=== PATIENT | female | born 1960 | race Caucasian/White ===

== ENCOUNTER 2016-04-03 16:19 | Observation (INO) ==
[2016-04-03] MEDS ORDERED: Aspirin 81 MG TAB.CHEW PO ONE (16:46)
--- NOTE | 2016-04-03 16:49 | Emergency Department Note ---
Disposition Clinical Impression: Chest pain Qualifiers: Chest pain type: unspecified Qualified Code(s): R07.9 - Chest pain, unspecified Disposition: Admitted As Inpatient Condition: Good Referrals: Russell Rodriges MD [Primary Care Provider] - Forms: ED Satisfaction Letter Time of Disposition: 18:10 Chest Pain HPI - General Chief Complaint: ED Chest Pain Stated Complaint: chest pain Time Seen by Provider: 04/03/16 16:41 Source: patient Mode of arrival: ambulatory Limitations: no limitations Vital Signs Reviewed: Yes Nursing Notes Reviewed: Yes - History of Present Illness HPI Narrative: 55-year-old female comes in complaining of chest pain began over the weekend. Patient states it's off and on in its exertional nature. She states her bathroom is upstairs and when she goes up steps to use the bathroom she develops chest pain that resolves with rest. Patient had a stress test and cardiac catheter 10 years ago that was normal. Does have risk factors she is a smoker she does have a family history and his borderline glucose. She also has an elevated cholesterol. 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 Onset: during exertion Pain Location: substernal, left chest Severity scale (1-10): 7 Improves with: rest Worsens with: exertion Associated symptoms: Denies: nausea, vomiting, diaphoresis - Related Data Home Medications Medication Instructions Recorded Confirmed Aspirin 81 mg PO DAILY 10/13/14 01/24/16 Cholecalciferol (Vitamin D3) 10,000 unit PO WE 10/13/14 01/24/16 [Vitamin D3] ClonazePAM [Klonopin] 1 mg PO BID PRN 10/13/14 01/24/16 Atorvastatin Calcium [Lipitor] 20 mg PO DAILY 01/24/16 01/24/16 Cetirizine HCl [All Day Allergy] 10 mg PO DAILY 01/24/16 01/24/16 Escitalopram [Lexapro] 20 mg PO DAILY 01/24/16 01/24/16 Fluticasone Propionate Nasal 2 spray NS DAILY 01/24/16 01/24/16 [Flonase] Gabapentin [Neurontin] 800 mg PO TID 01/24/16 01/24/16 HYDROcodone/Acet 7.5/325 mg [[place] 1 tab PO QID PRN 01/24/16 01/24/16 7.5-325 mg] Omeprazole [PriLOSEC] 40 mg PO DAILY 01/24/16 01/24/16 Potassium Chloride [Klor-Con 10] 10 meq PO DAILY 01/24/16 01/24/16 Promethazine [Phenergan] 25 mg PO Q6HR PRN 01/24/16 01/24/16 TraZODone 50 - 100 mg PO HS 01/24/16 01/24/16 Previous Rx's Medication Instructions Recorded HYDROcodone/Acet 5/325 mg [[place] 1 tab PO Q6H PRN #10 tab 03/23/16 5-325 mg] Allergies Allergy/AdvReac Type Severity Reaction Status Date / Time metoclopramide [From Reglan] Allergy Mild Rash Verified 04/03/16 16:29 nalbuphine [From Nubain] Allergy Mild Rash Verified 04/03/16 16:29 acetaminophen AdvReac Severe Chest Pain Verified 04/03/16 16:29 [From Tylenol-Codeine #3] codeine AdvReac Severe Chest Pain Verified 04/03/16 16:29 [From Tylenol-Codeine #3] tramadol [From Ultram] AdvReac Mild Nausea Verified 04/03/16 16:29 Constitutional: Denies: fever, chills, weakness, weight change Eyes: Denies: eye pain, eye discharge, vision change ENT ED: Denies: ear pain, throat pain, dental pain, hearing loss, epistaxis, congestion, dysphagia Cardiovascular: Reports: chest pain. Denies: palpitations, dyspnea on exertion , edema, syncope Respiratory: Denies: cough, dyspnea, wheezes, hemoptysis, stridor Gastrointestinal: Denies: abdominal pain, nausea, vomiting, diarrhea, constipation, hematemesis, melena, hematochezia Genitourinary: Denies: dysuria, frequency, hematuria, discharge Musculoskeletal: Denies: back pain, neck pain, arthralgia, myalgia Integumentary: Denies: rash, abrasion, lesions Neurological: Denies: headache, weakness, numbness, paresthesias, confusion, abnormal gait, vertigo Psychiatric: Denies: anxiety, depression, suicidal thoughts, homicidal thoughts , auditory hallucinations, visual hallucinations Endocrine: Denies: fatigue Hematological/Lymphatic: Denies: easy bleeding, easy bruising Allergic/Immunologic: Denies: facial swelling, urticaria Chest Pain PMH - Past Medical History Medical history: Reports: fibromyalgia, GERD, hyperlipidemia, osteoporosis, other, kidney stones, DVT Surgical history: Reports: orthopedic, other, hysterectomy Psychiatric history: Reports: anxiety, depression 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: bilateral tubal ligation - Social History Smoking Status: Current every day smoker Alcohol use: Reports: none Drug use: Reports: none, other Physical Exam - General Limitations: no limitations General appearance: alert - Head Head exam: atraumatic, normocephalic, normal inspection - Eye Eye exam: Present: normal appearance, PERRL, EOMI - ENT ENT exam: normal exam, normal oropharynx, mucous membranes moist - Neck Neck exam: Present: normal inspection, full ROM, trachea midline - Chest Chest inspection: Present: normal inspection, symmetric chest wall rise - Respiratory Respiratory exam: Present: normal lung sounds bilaterally - Cardiovascular Cardiovascular exam: Present: regular rate, normal rhythm, normal heart sounds - Abdominal Exam Abdominal exam: Present: soft, Non-Tender. Absent: tenderness, distention, guarding, rebound, rigidity - Extremities Exam Extremities exam: Present: normal inspection, full ROM. Absent: tenderness, pedal edema - Expanded Lower Extremity Exam Neurovascular/Tendon exam: Absent: motor deficit, sensory deficit, tendon deficit Gait: observed and normal - Back Exam Back exam: Present: normal inspection, full ROM. Absent: tenderness - Neurological Exam Neurological exam: Present: alert, oriented X3 - Psychiatric Psychiatric exam: Present: normal affect, normal mood - Skin Skin exam: Present: warm, dry, intact, normal color Course - Reevaluation(s) Reevaluation #1: 55-year-old with risk factors who comes in complaining of exertional chest pain. Workup in the emergency department is negative however with risk factors and clinical history rule out admission appears warranted. Time: 18:09 - Consultations Consultation #1: Discussed with Dr. Pro marley. Time: 18:09 Vital Signs Temperature 98.0 F 04/03/16 16:26 Pulse Rate 90 04/03/16 16:26 Respiratory Rate 18 04/03/16 16:26 Blood Pressure 130/82 04/03/16 16:26 O2 Sat by Pulse Oximetry 96 04/03/16 16:26 Temperature 98.0 F 04/03/16 16:26 Pulse Rate 90 04/03/16 16:26 Respiratory Rate 18 04/03/16 16:26 Blood Pressure 130/82 04/03/16 16:26 O2 Sat by Pulse Oximetry 96 04/03/16 16:26 Oxygen Delivery Oxygen Delivery Room Air Chest Pain - Lab Data Lab results reviewed: Yes I reviewed the patient's lab results. Result diagrams: 04/03/16 17:08 04/03/16 17:08 Lab Results 04/03/16 04/03/16 04/03/16 Range/Units 17:08 17:08 17:08 WBC 11.4 H (4.3-11.1) K/mcL RBC 4.27 (3.82-4.97) M/mcL Hgb 12.8 (11.5-15.4) g/dL Hct 38.1 (35.3-44.9) % MCV 89.2 (83.0-100.0) fL MCH 30.0 (28.0-33.3) pg MCHC 33.6 (31.6-35.5) g/dL RDW 13.0 (11.5-14.5) % Plt Count 283 (140-400) K/mcL MPV 9.5 (9.4-12.4) fL Immature Gran % 0.2 (0-4) % Seg Neutrophils % 58.6 % Lymphocytes % 34.2 % Monocytes % 5.8 % Eosinophils % 0.9 % Basophils % 0.3 % Neutrophils # 6.7 (1.6-8.9) K/mcL Lymphocytes # 3.9 (0.6-4.6) K/mcL Monocytes # 0.7 (0.0-1.3) K/mcL Eosinophils # 0.1 (0.0-0.6) K/mcL Basophils # 0.0 (0.0-0.2) K/mcL PT 11.5 (9.4-12.1) Seconds INR 1.1 APTT 30.6 (26.0-36.0) Seconds Sodium 138 (136-145) mEq/L Potassium 3.2 L (3.5-4.5) mEq/L Chloride 104 (98-109) mEq/L Carbon Dioxide 24 (19-29) mEq/L BUN 9 (7-20) mg/dL Creatinine 0.81 (0.57-1.11) mg/dL Est GFR ( Amer) > 60 (> 60) Est GFR (Non-Af Amer) > 60 (> 60) BUN/Creatinine Ratio 11 (6-26) Glucose 97 (70-99) mg/dL Calculated Osmolality 285 (280-300) Calcium 9.5 (8.6-10.8) mg/dL Troponin I (0-0.03) ng/mL 04/03/16 Range/Units 17:08 WBC (4.3-11.1) K/mcL RBC (3.82-4.97) M/mcL Hgb (11.5-15.4) g/dL Hct (35.3-44.9) % MCV (83.0-100.0) fL MCH (28.0-33.3) pg MCHC (31.6-35.5) g/dL RDW (11.5-14.5) % Plt Count (140-400) K/mcL MPV (9.4-12.4) fL Immature Gran % (0-4) % Seg Neutrophils % % Lymphocytes % % Monocytes % % Eosinophils % % Basophils % % Neutrophils # (1.6-8.9) K/mcL Lymphocytes # (0.6-4.6) K/mcL Monocytes # (0.0-1.3) K/mcL Eosinophils # (0.0-0.6) K/mcL Basophils # (0.0-0.2) K/mcL PT (9.4-12.1) Seconds INR APTT (26.0-36.0) Seconds Sodium (136-145) mEq/L Potassium (3.5-4.5) mEq/L Chloride (98-109) mEq/L Carbon Dioxide (19-29) mEq/L BUN (7-20) mg/dL Creatinine (0.57-1.11) mg/dL Est GFR ( Amer) (> 60) Est GFR (Non-Af Amer) (> 60) BUN/Creatinine Ratio (6-26) Glucose (70-99) mg/dL Calculated Osmolality (280-300) Calcium (8.6-10.8) mg/dL Troponin I 0.00 (0-0.03) ng/mL - Radiology Data Radiology results reviewed: Yes I reviewed the patient's radiology results. Chest X-Ray 02/14/17 16:46 IMPRESSION: No acute cardiopulmonary process. D/ 04/03/2016 17:39:22 Jam Villaseñor MD / [facility] Interpreting Provider: Jam Villaseñor MD - EKG Data EKG attestation: Yes I reviewed and interpreted this EKG. EKG shows normal: sinus rhythm Rate: normal Rhythm: NSR Interpretation: no acute changes Heart Score - Score History: Moderately Suspicious EKG: Non Specific repolarisation Disturbance Age: 45-65 Risk Factors: 1-2 risk factors Troponin: Less than normal limit HEART Score Total: 4
[2016-04-03 17:15] LABS: Basophils % 0.3 %; Eosinophils # 0.1 K/mcL (0.0-0.6); Eosinophils % 0.9 %; Hematocrit 38.1 % (35.3-44.9); Hemoglobin 12.8 g/dL (11.5-15.4); Immature Granulocytes % 0.2 % (0-4); Lymphocytes # 3.9 K/mcL (0.6-4.6); Lymphocytes % 34.2 %; Mean Corpuscular HGB Conc 33.6 g/dL (31.6-35.5); Mean Corpuscular Volume 89.2 fL (83.0-100.0); Mean Platelet Volume 9.5 fL (9.4-12.4); Monocytes # 0.7 K/mcL (0.0-1.3); Monocytes % 5.8 %; Neutrophils # 6.7 K/mcL (1.6-8.9); Platelet Count 283 K/mcL (140-400); Red Blood Count 4.27 M/mcL (3.82-4.97); Segmented Neutrophils % 58.6 %
[2016-04-03 17:21] LABS: INR 1.1; Prothrombin Time 11.5 Seconds (9.4-12.1)
[2016-04-03 17:24] LABS: Activated Partial Thrombo Time 30.6 Seconds (26.0-36.0)
[2016-04-03 17:28] LABS: BUN/Creatinine Ratio 11 (6-26); Blood Urea Nitrogen 9 mg/dL (7-20); Calcium 9.5 mg/dL (8.6-10.8); Carbon Dioxide 24 mEq/L (19-29); Chloride 104 mEq/L (98-109); Glucose 97 mg/dL (70-99); Osmolality,Calculated 285 (280-300); Potassium 3.2 mEq/L (3.5-4.5); Sodium 138 mEq/L (136-145); eGFR For African Americans > 60 (> 60); eGFR For Non-African Americans > 60 (> 60)
[2016-04-03] MEDS ORDERED: Ondansetron 4 MG/2 ML VIAL IVP ONE (17:47)
[2016-04-03] MEDS ORDERED: *HR* Morphine 2 MG/ML SYRINGE IVP ONE (17:47)
[2016-04-03] MEDS ORDERED: Fluticasone Propionate Nasal 50 MCG/SPRAY BOTTLE NS PRN (20:05)
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
[2016-04-03] MEDS: Nicotine 14 MG PATCH.TD24 TD SCH (20:25)
[2016-04-03] MEDS: *HR* Morphine 2 MG/ML SYRINGE IVP PRN (21:22)
[2016-04-03] MEDS ORDERED: Ondansetron 4 MG/2 ML VIAL IVP PRN (21:31)
[2016-04-04] MEDS: *HR* Morphine 2 MG/ML SYRINGE IVP PRN (04:30)
[2016-04-04 04:43] LABS: Basophils % 0.4 %; Eosinophils # 0.2 K/mcL (0.0-0.6); Eosinophils % 1.6 %; Hematocrit 38.6 % (35.3-44.9); Hemoglobin 12.8 g/dL (11.5-15.4); Immature Granulocytes % 0.2 % (0-4); Lymphocytes # 4.4 K/mcL (0.6-4.6); Lymphocytes % 46.8 %; Mean Corpuscular HGB Conc 33.2 g/dL (31.6-35.5); Mean Corpuscular Hemoglobin 30.1 pg (28.0-33.3); Mean Corpuscular Volume 90.8 fL (83.0-100.0); Mean Platelet Volume 9.8 fL (9.4-12.4); Monocytes # 0.5 K/mcL (0.0-1.3); Monocytes % 5.7 %; Neutrophils # 4.2 K/mcL (1.6-8.9); Platelet Count 273 K/mcL (140-400); Red Blood Count 4.25 M/mcL (3.82-4.97); Red Cell Distribution Width 13.1 % (11.5-14.5); Segmented Neutrophils % 45.3 %
[2016-04-04] MEDS ORDERED: Regadenoson 0.4 MG/5 ML SYRINGE IVP ONE (06:53)
[2016-04-04] MEDS ORDERED: *HR* Enoxaparin 40 MG/0.4 ML SYRINGE SQ SCH (07:00)
[2016-04-04] MEDS ORDERED: Aspirin 81 MG TAB.CHEW PO SCH (09:00)
[2016-04-04] MEDS ORDERED: clonazePAM 0.5 MG TABLET PO SCH (09:00)
[2016-04-04] MEDS ORDERED: Acetaminophen 325 MG TABLET PO PRN (09:38)
[2016-04-04] MEDS: Nicotine 14 MG PATCH.TD24 TD SCH (09:53)
--- NOTE | 2016-04-04 10:37 | Nuclear Medicine Stress Report ---
Regadenoson Nuclear Stress Name: Kathy Stratton Date of Study: 04/04/2016 Date: 1960 Ht: 63.0 in Medical Record#: [id number] Age: 55 Wt: 157.0 lb Gender: Female Order #: [id number] Location: [facility] Room: [facility] Supervising Provider: Markel Kaur CNP Reading Physician: Paulo Castillo DO, FACArmando, ANA PAULA SINGLETARY Ordering Physician: Jen Mena CNP Primary Care Physician: Russell Rodriges MD Stress Technologist: Lidia Velasquez, LIABILITY CLAIMS MANAGER, CCT, CPFT Cab Supervisor: Broderick Leigh Indications: Chest Pain Impression: Pharmacologic stress ECG is negative for ischemia at level of heart rate achieved. Slight chest heaviness reported, lasting less than one minute. This is a nonspecific finding with Lexiscan. Gated EF > 70%. Small sized, mild intensity, fixed apical lateral defect consistent with artifact. Perfusion imaging was negative for ischemia or infarct. History: History of Smoking Stress Test Summary: Stress Test Type: Pharmacologic Regadenoson 0.4mg/5ml given IV Baseline Information: Initial Heart Rate: 68 Blood Pressure: 110/60 Stress Information: Stress Time: 4 min sec Test Terminated Due to (primary): As per protocol Maximum Blood Pressure: 112/64 Maximum Heart Rate: 112 Percent Maximum Heart Rate Achieved: 67 Double Product: [id number] METS Reached: 1 Symptoms: Shortness of breath Nuclear Summary: SPECT myocardial perfusion imaging using Tc99m Sestamibi given intravenously was performed at rest and following cardiac stress testing. The resting images were obtained following initial dose of 10.9 mCi. Following stress an additional dose of 34.9 mCi was given at peak exercise or 30 seconds post regadenoson infusion. Medication Given: Time Medication Dose Units Route Findings: Stress Note * Resting ECG demonstrated normal sinus rhythm. * No baseline arrhythmias were noted. * Pharmacologic stress ECG is negative for ischemia at level of heart rate achieved. * No arrhythmias were noted during stress. * Slight chest heaviness reported, lasting less than one minute. This is a nonspecific finding with Lexiscan. Hemodynamic responses * Normal hemodynamic responses to pharmacologic stress. Study Quality * Study quality is average. Gated EF > 70% * Gated EF > 70%. Left Ventricle * The left ventricle is not dilated. * LVEDV = 66 mL. NORMALS * Normal wall motion. Apical Perfusion Rest * The apical lateral segment shows a mild reduction in perfusion. Apical Perfusion Stress * The apical lateral segment shows a mild reduction in perfusion. TID * No evidence of transient ischemic dilatation. TID ratio * TID ratio = 1.19. Lung Uptake * There is no evidence of increase lung uptake. Updated by Paulo Castillo DO, FACArmando, GEMINI, ANA PAULA on 04/04/2016 10:31:16 AM electronically signed on 04/04/2016 10:33:30 AM with status of Final
[2016-04-04 11:20] VITALS: BP 106/70
--- NOTE | 2016-04-04 12:47 | Discharge Summary ---
Date of Encounter: 04/04/16 Time of Encounter: 12:15 - Discharge Diagnosis (1) Chest pain Priority: Primary Status: Acute Comments: Chest x-ray negative. Troponins negative. Stress test negative. Acute coronary syndrome ruled out. Patient stating her daughter and her daughter's 6 kids are living with her and states she has an exorbitant amount of stress. Chest pain reproducible with palpation, consistent with musculoskeletal etiology. Follow-up outpatient. Qualifiers: Chest pain type: unspecified Qualified Code(s): R07.9 - Chest pain, unspecified (2) Costochondral chest pain Priority: Primary Status: Suspected (3) Other social stressor Priority: Primary Status: Acute (4) Hyperlipidemia Priority: Secondary Status: Chronic Comments: Elevated triglycerides and total cholesterol. LDL 228. We will initiate a statin and give her information on low-cholesterol diet. Follow-up outpatient. (5) Tobacco abuse Priority: Secondary Status: Chronic Comments: Patient stating she continues to smoke half pack per day. She declined counseling stating her social life is simply too stressful at this point to consider stopping - Discharge Medications Prescriptions: Rosuvastatin Calcium 20 mg PO HS #30 tablet Home Medications: Aspirin 81 mg PO DAILY 10/13/14 [History] Cholecalciferol (Vitamin D3) [Vitamin D3] 10,000 unit PO WE 10/13/14 [History] Escitalopram [Lexapro] 20 mg PO DAILY 01/24/16 [History] Fluticasone Propionate Nasal [Flonase] 2 spray NS DAILY PRN 01/24/16 [History] Gabapentin [Neurontin] 800 mg PO TID 01/24/16 [History] Omeprazole [PriLOSEC] 40 mg PO DAILY 01/24/16 [History] Potassium Chloride [Klor-Con 10] 10 meq PO DAILY 01/24/16 [History] Promethazine [Phenergan] 25 mg PO Q6HR PRN 01/24/16 [History] TraZODone 50 - 100 mg PO HS PRN 01/24/16 [History] ClonazePAM [Klonopin] 0.5 mg PO DAILY 04/03/16 [History] Ibuprofen 800 mg PO TID PRN 04/03/16 [History] Methocarbamol [Robaxin-750] 750 mg PO TID PRN 04/03/16 [History] Vilazodone HCl [Viibryd] 10 mg PO DAILY 04/03/16 [History] Rosuvastatin Calcium 20 mg PO HS #30 tablet 04/04/16 [Rx] Allergies/Adverse Reactions: Allergies metoclopramide [From Reglan] Allergy (Mild, Verified 04/03/16 16:29) Rash nalbuphine [From Nubain] Allergy (Mild, Verified 04/03/16 16:29) Rash acetaminophen [From Tylenol-Codeine #3] Adverse Reaction (Severe, Verified 04/03 16:29) Chest Pain PATIENT STATES CAN TAKE OTC TYLENOL codeine [From Tylenol-Codeine #3] Adverse Reaction (Severe, Verified 04/03/16 16 :29) Chest Pain tramadol [From Ultram] Adverse Reaction (Mild, Verified 04/03/16 16:29) Nausea Procedures/tests Complete & Pending: Procedures Performed prior 72 hours Category Date Time Status NM lindsey perf SPECT multi [NM] Routine Exams 04/03/16 23:33 Taken SP pharm nuclear stress Routine Y 04/04/16 08:30 Completed Date of admission: 04/03/16 18:32 Primary care physician: Penelope Carrillo Discharging clinician: Jen Mena Anticipated date of discharge: 04/04/16 - Patient Status Disposition: Home, Self-Care Condition: Good Functional capacity at discharge: independent ambulation Overall status at discharge: patient is back to baseline - Discharge Instructions Follow Up With: Russell Rodriges MD [Primary Care Provider] - 04/06/16 11:30 am Additional Instructions: Follow-up with primary care provider as scheduled - Diet and Activity Activity: increase activity as tolerated Diet: low fat, low cholesterol, low salt diet Hospital course: Ms. Stratton is a 55 year old female with past medical history of fibromyalgia , GERD, hyperlipidemia, prior DVT, current tobacco abuse. Patient presented to the emergency room for chief complaint intermittent left-sided chest pain 1 week. Patient stating the pain is exertional but also occurs at rest and lasts for minutes to an hour. Patient denies cough, shortness of breath, fever or chills. Patient does endorse increased social stressors at home has her daughter and her 6 grandchildren are living with her. Workup in the emergency department unremarkable. Chest x-ray negative. Patient was admitted to the hospitalist service for further evaluation and management. Troponins were negative. Nuclear stress test negative and revealed an ejection fraction of 70% . Acute coronary syndrome ruled out. On examination, patient's left-sided chest pain is reproducible with palpation and consistent with musculoskeletal etiology. Patient also states that her physician allegedly told her several weeks ago that her cholesterol was very high and that she would end up having a stroke or a heart attack. She states that she was not placed on a cholesterol medication at that time and states that she obsesses and worries over this several times daily. Triglyceride 228, total cholesterol 213, LDL 228. Patient started on statin at this time and she was educated on low cholesterol diets. I strongly suspect muscular etiology compounded with increased social stressors and anxiety likely the culprit of her chest pain. She was discharged home in stable condition with close outpatient follow-up recommended. ITS Impressions Chest X-Ray 04/03/16 16:46 IMPRESSION: No acute cardiopulmonary process. D/ / 04/03/2016 17:39:22 Jam Villaseñor MD / [facility] Interpreting Provider: Jam Villaseñor MD Nuclear stress test impression: Pharmacologic stress ECG is negative for ischemia level of heart rate achieved. Slight chest heaviness reported, lasting less than 1 minute. This is a nonspecific finding with Lexiscan. Gated ejection fraction greater than 70%. Small size, mild intensity, fixed apical lateral defect consistent with artifact. Perfusion imaging was negative for ischemia or infarct. - Time Spent with Patient Total time spent providing and/or coordinating discharge services: - Constitutional Vitals: Temp Pulse Resp BP Pulse Ox 97.9 F 59 14 106/70 95 04/04/16 11:17 04/04/16 11:17 04/04/16 11:17 04/04/16 11:17 04/04/16 11:17 General appearance: Present: A&O X 3, pleasant, no acute distress, answers questions appropriately - Head Head exam: Present: atraumatic, normocephalic - Eye Eye exam: Present: PERRL, conjuntiva pink, sclera anicteric Pupils: Present: PERRL - Neck Neck exam general surgery: Present: supple, trachea midline. Absent: lymphadenopathy - Respiratory Respiratory exam: Present: chest wall tenderness, decreased breath sounds. Absent: accessory muscle use, rales, respiratory distress, rhonchi, wheezes - Cardiovascular Cardiovascular exam: Present: RRR, +S1, +S2. Absent: diastolic murmur, gallop, rubs, systolic murmur - GI/Abdominal GI/Abdominal exam: Present: normal bowel sounds, soft, no peritoneal signs. Absent: distended, tenderness - Extremities Exam Extremities exam: Present: warm, radial pulses palpable and symetrical. Absent : calf tenderness, cyanotic, pedal edema - Neurological Exam Neurological exam: Present: alert, CN II-XII intact, normal gait, oriented X3, no focal deficits, strengths equal and symetr throughout. Absent: pronater drift, facial droop, speech deficit - Skin Skin exam: Present: dry, intact, normal color, warm
--- NOTE | 2016-04-05 19:33 | Electrocardiograph Report ---
[place] [address] Test Date: 2016-04-03 Pat Name: Kathy Stratton Department: 102 Room: 3B Gender: F Cardiology Nurse Practitioner: : 1960 Requested By: Durga Dawkins Order Number: [id number] Reading MD: Darrin Pham Measurements Intervals [place] Rate: 88 P: 66 VA: 156 QRS: 9 QRSD: 97 T: 50 QT: 373 QTc: 418 Interpretive Statements SINUS RHYTHM Electronically Signed On 04-05-2016 19:32:12 EST by Darrin Pham
--- NOTE | 2016-04-05 19:37 | Electrocardiograph Report ---
[address] [address] Test Date: 2016-04-03 Pat Name: Kathy Stratton Department: 113 Room: 3B37 Gender: F Print Line Tailer: : 1960 Requested By: Darrin Handy Order Number: [id number] Reading MD: Darrin Pham Measurements Intervals [place] Rate: 67 P: 42 MN: 186 QRS: 44 QRSD: 96 T: 42 QT: 393 QTc: 409 Interpretive Statements SINUS RHYTHM POSSIBLE RIGHT VENTRICULAR CONDUCTION DELAY Electronically Signed On 04-05-2016 19:36:10 EST by Darrin Pham
[2016-04-06 20:06] LABS: CK-MB (CK isoenzymes) 0 % (0-4); CK-MM (CK-isoenzymes) 100 % (96-100)
[2016-04-08 07:50] LABS: CK Total (Ck Isoenzymes) 46 U/L (20-180)
[2016-04-08 07:51] LABS: CK-BB (CK isoenzymes) 0 % (0-0)
== END 2016-04-04 14:03 | disposition home or self-care (01) ==
LOC: EMEROO 16:19 → 3BNU 16:19
PROVIDERS: ADMIT Hospitalist; ATTEND Nurse Practitioner Family

== ENCOUNTER 2020-03-23 17:50 | Inpatient (IN) ==
[2020-03-23] MEDS ORDERED: methylPREDNISolone 125 MG/2 ML VIAL IVP ONE (17:59)
[2020-03-23] MEDS ORDERED: Ipratropium/Albuterol Neb 3 ML IH ONE (17:59)
[2020-03-23] MEDS ORDERED: Isovue-370 500 ML BOTTLE IVP ONE (18:00)
[2020-03-23] MEDS ORDERED: Piperacillin/Tazobactam 3.375 GM in 0.9 % Sodium Chloride Mini Bag 100 ML IVPB ONE (18:03)
[2020-03-23] MEDS ORDERED: Azithromycin 500 MG in 0.9 % Sodium Chloride 250 ML IVPB ONE (18:04)
[2020-03-23] MEDS ORDERED: 0.9 % Sodium Chloride 1,000 ML IVC SCH (18:15)
[2020-03-23] MEDS ORDERED: Furosemide 40 MG/4 ML VIAL IVP ONE (18:16)
[2020-03-23 18:39] LABS: Hemoglobin 10.9 g/dL (11.5-15.4); Mean Corpuscular HGB Conc 31.1 g/dL (31.6-35.5); Mean Corpuscular Hemoglobin 30.4 pg (28.0-33.3); Mean Platelet Volume 9.3 fL (9.4-12.4); Platelet Count 246 K/mcL (140-400); Red Blood Count 3.59 M/mcL (3.82-4.97); Red Cell Distribution Width 15.1 % (11.5-14.5); White Blood Count 7.7 K/mcL (4.3-11.1)
[2020-03-23 18:41] LABS: Mean Corpuscular Volume 97.5 fL (83.0-100.0)
[2020-03-23 18:49] LABS: INR 1.1; Prothrombin Time 13.1 Seconds (9.4-12.1)
[2020-03-23 18:51] LABS: Activated Partial Thrombo Time 23.8 Seconds (26.0-36.0)
[2020-03-23 19:00] LABS: BUN/Creatinine Ratio 29 (6-26); Blood Urea Nitrogen 24 mg/dL (6-20); Calcium 9.4 mg/dL (8.6-10.3); Carbon Dioxide 28 mEq/L (23-29); Chloride 98 mEq/L (98-107); Glucose 115 mg/dL (70-105); Osmolality,Calculated 285 (280-300); Potassium 3.7 mEq/L (3.5-5.1); Sodium 135 mEq/L (136-145); eGFR For African Americans > 60 (> 60); eGFR For Non-African Americans > 60 (> 60)
[2020-03-23 19:05] LABS: Eosinophils # 0.3 K/mcL (0.0-0.6); Lymphocytes # 2.2 K/mcL (0.6-4.6)
[2020-03-23 19:06] LABS: Monocytes # 0.5 K/mcL (0.0-1.3); Neutrophils # 4.8 K/mcL (1.6-8.9)
[2020-03-23 19:07] LABS: Platelet Estimate Normal (Normal)
[2020-03-23] MEDS ORDERED: 0.9 % Sodium Chloride 500 ML IVC ONE ×2 (19:07→20:59)
[2020-03-23 19:08] LABS: Microcytosis Present (Not Present); Reactive Lymphocytes Present (Not Present)
[2020-03-23] MEDS ORDERED: 0.9 % Sodium Chloride 1,000 ML IVC ONE (19:12)
[2020-03-23] MEDS ORDERED: Ondansetron 4 MG/2 ML VIAL IVP ONE (19:35)
[2020-03-23 19:43] LABS: VBG HCO3 26 mEq/L (21-27); VBG PCO2 37 mmHg (41-51); VBG PH 7.45 pH Units (7.32-7.42); VBG PO2 178 mmHg (25-50)
[2020-03-23] MEDS ORDERED: Folic Acid 1 MG TABLET PO ONE (20:00)
[2020-03-23] MEDS ORDERED: Naloxone 0.4 MG/ML INJ IVP PRN ×2 (22:30→22:31)
[2020-03-23] MEDS ORDERED: *HR* OxyCODONE Immed Rel 5 MG TABLET PO PRN (22:31)
[2020-03-23] MEDS ORDERED: Ipratropium/Albuterol Neb 3 ML IH PRN (22:38)
[2020-03-23] MEDS: Ipratropium/Albuterol Neb 3 ML IH SCH (23:07)
[2020-03-23 23:10] LABS: Bilirubin,Urine Negative (Negative); Blood,Urine Negative (Negative); Clarity,Urine Clear (Clear); Color,Urine Yellow (Yellow); Glucose,Urine (UA) Normal (Normal); Ketones,Urine Negative (Negative); Leukocyte Esterase,Urine Negative (Negative); Nitrite,Urine Negative (Negative); Protein,Urine Trace mg/dL (Neg-Trace); Specific Gravity,Urine 1.022 (1.010-1.025)
[2020-03-23 23:24] LABS: Adenovirus Not Detected (Not Detect); Bordetella Pertussis Not Detected (Not Detect); Chlamydophila pneumoniae Not Detected (Not Detect); Coronavirus 229E Not Detected (Not Detect); Coronavirus HKU1 Not Detected (Not Detect); Coronavirus NL63 Not Detected (Not Detect); Coronavirus OC43 Not Detected (Not Detect); Human Metapneumovirus Not Detected (Not Detect); Human Rhinovirus/Enterovirus Not Detected (Not Detect); Influenza A Subtype 2009 H1 Not Detected (Not Detect); Influenza B Not Detected (Not Detect); Mycoplasma pneumoniae Not Detected (Not Detect); Parainfluenza Virus 1 Not Detected (Not Detect); Parainfluenza Virus 2 Not Detected (Not Detect); Parainfluenza Virus 3 Not Detected (Not Detect); Parainfluenza Virus 4 Not Detected (Not Detect); Respiratory Syncytial Virus Not Detected (Not Detect); SARS-CoV-2 Not Detected (Not Detect)
[2020-03-24] MEDS ORDERED: Morphine Sulfate 2 MG/ML SYRINGE IVP ONE (00:53)
[2020-03-24] MEDS ORDERED: Ringers Solution, Lactated 500 ML IVC ONE (01:07)
[2020-03-24] MEDS ORDERED: Ringers Solution, Lactated 1,000 ML IVC SCH (01:15)
[2020-03-24 01:33] LABS: Hematocrit 31.1 % (35.3-44.9); Hemoglobin 9.8 g/dL (11.5-15.4); Lymphocytes # 0.5 K/mcL (0.6-4.6); Mean Corpuscular HGB Conc 31.5 g/dL (31.6-35.5); Mean Corpuscular Hemoglobin 30.2 pg (28.0-33.3); Mean Platelet Volume 9.4 fL (9.4-12.4); Platelet Count 245 K/mcL (140-400); Red Blood Count 3.24 M/mcL (3.82-4.97); Red Cell Distribution Width 15.2 % (11.5-14.5)
[2020-03-24 01:34] LABS: INR 1.2; Prothrombin Time 13.8 Seconds (9.4-12.1)
[2020-03-24 01:37] LABS: White Blood Count 12.9 K/mcL (4.3-11.1)
[2020-03-24 01:49] LABS: Alanine Aminotransferase 54 Units/L (7-52); Albumin 3.3 g/dL (3.5-5.7); Albumin/Globulin Ratio 0.9 (1.1-2.2); Alkaline Phosphatase 141 Units/L (34-104); Aspartate Amino Transferase 22 Units/L (13-39); BUN/Creatinine Ratio 24 (6-26); Bilirubin,Total 1.7 mg/dL (0.3-1.0); Blood Urea Nitrogen 25 mg/dL (6-20); Calcium 8.9 mg/dL (8.6-10.3); Carbon Dioxide 28 mEq/L (23-29); Chloride 96 mEq/L (98-107); Chol/HDL Ratio 2.3 (0-4.9); Cholesterol 208 mg/dL (< 200); Globulin 3.5 g/dL (2.4-3.5); Glucose 168 mg/dL (70-105); HDL Cholesterol 89 mg/dL (40-59); LDL Cholesterol,Calculated 100 mg/dL (< 100); Magnesium 1.9 mg/dL (1.6-2.6); Osmolality,Calculated 290 (280-300); Phosphorous 5.4 mg/dL (2.7-4.5); Sodium 136 mEq/L (136-145); Total Protein 6.8 g/dL (6.4-8.9); Triglycerides 96 mg/dL (< 150); eGFR For African Americans > 60 (> 60); eGFR For Non-African Americans 54 (> 60)
[2020-03-24 01:56] LABS: C-Reactive Protein > 300 mg/L (Less than 10); Troponin I < 0.03 ng/mL (< 0.04)
[2020-03-24 02:18] LABS: Monocytes # 0.3 K/mcL (0.0-1.3); Neutrophils # 11.6 K/mcL (1.6-8.9); Platelet Estimate Normal (Normal)
[2020-03-24] MEDS ORDERED: Ringers Solution, Lactated 1,000 ML IVC ONE (02:19)
[2020-03-24] MEDS: MethylPREDNISolone 40 MG/ML VIAL IVP SCH ×3 (02:23→16:59)
[2020-03-24] MEDS: Cefepime HCl 2,000 MG in Water for inj. (sterile) 20 ML IVP SCH ×3 (02:35→14:35)
[2020-03-24] MEDS: Ipratropium/Albuterol Neb 3 ML IH SCH ×6 (03:59→23:44)
[2020-03-24] MEDS: Ringers Solution, Lactated 1,000 ML IVC SCH ×3 (04:10→19:03)
[2020-03-24] MEDS: Doxycycline 100 MG in 0.9 % Sodium Chloride Mini Bag 100 ML IVPB SCH ×2 (06:32→16:56)
[2020-03-24] MEDS: Ondansetron 4 MG/2 ML VIAL IVP PRN ×2 (09:32→18:30)
[2020-03-24] MEDS: Aspirin 81 MG TAB.CHEW PO SCH (09:33)
[2020-03-24] MEDS: *HR* HYDROcodone/Acet 5/325 mg TABLET PO PRN ×2 (12:25→23:26)
[2020-03-24] MEDS: *HR* OxyCODONE Immed Rel 5 MG TABLET PO PRN ×2 (14:36→18:29)
[2020-03-24] MEDS: ALPRAZolam 1 MG TABLET PO PRN ×2 (16:54→20:20)
[2020-03-24] MEDS: *HR* Heparin 5,000 UNIT/ML VIAL SQ SCH (16:59)
[2020-03-24] MEDS: risperiDONE 1 MG TABLET PO SCH (20:20)
[2020-03-24] MEDS: Gabapentin 400 MG CAPSULE PO PRN (20:20)
[2020-03-25] MEDS: MethylPREDNISolone 40 MG/ML VIAL IVP SCH ×4 (00:50→23:30)
[2020-03-25] MEDS: Cefepime HCl 2,000 MG in Water for inj. (sterile) 20 ML IVP SCH ×3 (00:50→20:33)
[2020-03-25] MEDS: *HR* OxyCODONE Immed Rel 5 MG TABLET PO PRN ×5 (00:55→20:46)
[2020-03-25] MEDS: *HR* Promethazine 25 MG/ML VIAL IM PRN ×2 (00:55→21:52)
[2020-03-25 02:17] LABS: Alanine Aminotransferase 38 Units/L (7-52); Albumin 3.1 g/dL (3.5-5.7); Albumin/Globulin Ratio 0.9 (1.1-2.2); Alkaline Phosphatase 120 Units/L (34-104); Aspartate Amino Transferase 10 Units/L (13-39); BUN/Creatinine Ratio 35 (6-26); Bilirubin,Total 0.4 mg/dL (0.3-1.0); Blood Urea Nitrogen 26 mg/dL (6-20); Calcium 9.2 mg/dL (8.6-10.3); Carbon Dioxide 28 mEq/L (23-29); Chloride 99 mEq/L (98-107); Globulin 3.5 g/dL (2.4-3.5); Glucose 202 mg/dL (70-105); Osmolality,Calculated 293 (280-300); Potassium 3.6 mEq/L (3.5-5.1); Sodium 136 mEq/L (136-145); Total Protein 6.6 g/dL (6.4-8.9); eGFR For African Americans > 60 (> 60); eGFR For Non-African Americans > 60 (> 60)
[2020-03-25] MEDS: Ipratropium/Albuterol Neb 3 ML IH SCH ×6 (03:58→23:05)
[2020-03-25] MEDS: *HR* Heparin 5,000 UNIT/ML VIAL SQ SCH ×2 (05:37→16:56)
[2020-03-25] MEDS: Doxycycline 100 MG in 0.9 % Sodium Chloride Mini Bag 100 ML IVPB SCH ×2 (05:37→16:56)
[2020-03-25] MEDS: ALPRAZolam 1 MG TABLET PO PRN ×2 (05:39→14:45)
[2020-03-25] MEDS: Cholecalciferol (D-3) 1,000 UNIT (25MCG) TABLET PO SCH (08:08)
[2020-03-25] MEDS: Aspirin 81 MG TAB.CHEW PO SCH (08:08)
[2020-03-25] MEDS: Folic Acid 1 MG TABLET PO SCH (08:09)
[2020-03-25] MEDS: Ondansetron 4 MG/2 ML VIAL IVP PRN ×2 (08:09→20:46)
[2020-03-25] MEDS: Ringers Solution, Lactated 1,000 ML IVC SCH (09:28)
[2020-03-25] MEDS ORDERED: polyethylene glycoL 3350 17 GM POWD.PACK PO PRN (16:29)
[2020-03-25] MEDS: risperiDONE 1 MG TABLET PO SCH (20:33)
[2020-03-26] MEDS: *HR* OxyCODONE Immed Rel 5 MG TABLET PO PRN ×4 (02:47→20:15)
[2020-03-26 03:57] LABS: Basophils % 0.2 %; Hematocrit 28.1 % (35.3-44.9); Hemoglobin 8.9 g/dL (11.5-15.4); Immature Granulocytes % 1.7 % (0-4); Lymphocytes # 0.6 K/mcL (0.6-4.6); Lymphocytes % 4.3 %; Mean Corpuscular HGB Conc 31.7 g/dL (31.6-35.5); Mean Corpuscular Hemoglobin 31.2 pg (28.0-33.3); Mean Corpuscular Volume 98.6 fL (83.0-100.0); Mean Platelet Volume 9.4 fL (9.4-12.4); Monocytes # 0.6 K/mcL (0.0-1.3); Monocytes % 3.9 %; Neutrophils # 13.3 K/mcL (1.6-8.9); Platelet Count 250 K/mcL (140-400); Red Blood Count 2.85 M/mcL (3.82-4.97); Red Cell Distribution Width 15.6 % (11.5-14.5); Segmented Neutrophils % 89.9 %; White Blood Count 14.8 K/mcL (4.3-11.1)
[2020-03-26] MEDS: *HR* Promethazine 25 MG/ML VIAL IM PRN ×2 (04:11→20:12)
[2020-03-26 04:13] LABS: BUN/Creatinine Ratio 40 (6-26); Blood Urea Nitrogen 24 mg/dL (6-20); Calcium 9.4 mg/dL (8.6-10.3); Carbon Dioxide 32 mEq/L (23-29); Chloride 97 mEq/L (98-107); Glucose 150 mg/dL (70-105); Osmolality,Calculated 291 (280-300); Potassium 4.2 mEq/L (3.5-5.1); Sodium 137 mEq/L (136-145); eGFR For African Americans > 60 (> 60); eGFR For Non-African Americans > 60 (> 60)
[2020-03-26] MEDS: Ipratropium/Albuterol Neb 3 ML IH SCH ×6 (04:26→23:54)
[2020-03-26] MEDS: *HR* Heparin 5,000 UNIT/ML VIAL SQ SCH ×2 (05:22→17:56)
[2020-03-26] MEDS: Doxycycline 100 MG in 0.9 % Sodium Chloride Mini Bag 100 ML IVPB SCH ×2 (05:22→17:54)
[2020-03-26] MEDS: Cefepime HCl 2,000 MG in Water for inj. (sterile) 20 ML IVP SCH ×3 (05:22→20:19)
[2020-03-26] MEDS: *HR* HYDROcodone/Acet 5/325 mg TABLET PO PRN ×3 (05:25→17:56)
[2020-03-26] MEDS ORDERED: Lidocaine HCL 4 ML Topical Solution (Laryng-O-Jet Kit Sterile Pak) TP ONE (07:35)
[2020-03-26] MEDS ORDERED: Lidocaine -MPF 2% 2 ML VIAL ONE (07:35)
[2020-03-26] MEDS ORDERED: *HR* Midazolam HCl 2 MG/2 ML VIAL ONE (07:36)
[2020-03-26] MEDS ORDERED: *HR* Propofol 200 MG/20 ML VIAL IVP ONE (07:36)
[2020-03-26] MEDS ORDERED: *HR* FentaNYL (PF) 100 MCG/2 ML VIAL ONE (07:36)
[2020-03-26] MEDS ORDERED: *HR* Succinylcholine 200 MG/10 ML VIAL IVP ONE (07:40)
[2020-03-26] MEDS: Acetaminophen 325 MG TABLET PO PRN (08:17)
[2020-03-26] MEDS: Cholecalciferol (D-3) 1,000 UNIT (25MCG) TABLET PO SCH (08:50)
[2020-03-26] MEDS: Folic Acid 1 MG TABLET PO SCH (08:50)
[2020-03-26] MEDS: Aspirin 81 MG TAB.CHEW PO SCH (08:51)
[2020-03-26] MEDS: MethylPREDNISolone 40 MG/ML VIAL IVP SCH ×3 (08:53→23:27)
[2020-03-26] MEDS ORDERED: Promethazine 6.25 MG in Water for inj. (sterile) 20 ML IVPB PRN (09:38)
[2020-03-26] MEDS ORDERED: Ondansetron 4 MG/2 ML VIAL ONE (09:54)
[2020-03-26] MEDS ORDERED: Ibuprofen 800 MG TABLET PO ONE (10:11)
[2020-03-26] MEDS ORDERED: Ibuprofen 200 MG TABLET PO ONE (10:30)
[2020-03-26] MEDS: ALPRAZolam 1 MG TABLET PO PRN ×2 (11:12→18:43)
[2020-03-26] MEDS: Ondansetron 4 MG/2 ML VIAL IVP PRN (18:42)
[2020-03-26] MEDS: risperiDONE 1 MG TABLET PO SCH (20:15)
[2020-03-27] MEDS: Ondansetron 4 MG/2 ML VIAL IVP PRN ×3 (02:25→20:32)
[2020-03-27] MEDS: *HR* HYDROcodone/Acet 5/325 mg TABLET PO PRN ×3 (02:25→17:06)
[2020-03-27] MEDS: ALPRAZolam 1 MG TABLET PO PRN ×3 (02:33→20:33)
[2020-03-27] MEDS: Ipratropium/Albuterol Neb 3 ML IH SCH ×6 (03:29→23:52)
[2020-03-27 03:36] LABS: Basophils % 0.1 %; Hematocrit 31.9 % (35.3-44.9); Hemoglobin 10.1 g/dL (11.5-15.4); Immature Granulocytes % 2.9 % (0-4); Lymphocytes # 0.5 K/mcL (0.6-4.6); Lymphocytes % 4.8 %; Mean Corpuscular HGB Conc 31.7 g/dL (31.6-35.5); Mean Corpuscular Hemoglobin 30.8 pg (28.0-33.3); Mean Corpuscular Volume 97.3 fL (83.0-100.0); Monocytes # 0.4 K/mcL (0.0-1.3); Neutrophils # 9.5 K/mcL (1.6-8.9); Platelet Count 273 K/mcL (140-400); Red Blood Count 3.28 M/mcL (3.82-4.97); Red Cell Distribution Width 15.1 % (11.5-14.5); Segmented Neutrophils % 88.2 %; White Blood Count 10.7 K/mcL (4.3-11.1)
[2020-03-27 03:56] LABS: BUN/Creatinine Ratio 40 (6-26); Blood Urea Nitrogen 25 mg/dL (6-20); Calcium 9.9 mg/dL (8.6-10.3); Carbon Dioxide 34 mEq/L (23-29); Chloride 91 mEq/L (98-107); Glucose 150 mg/dL (70-105); Osmolality,Calculated 287 (280-300); Potassium 4.2 mEq/L (3.5-5.1); Sodium 135 mEq/L (136-145); eGFR For African Americans > 60 (> 60); eGFR For Non-African Americans > 60 (> 60)
[2020-03-27] MEDS: *HR* Promethazine 25 MG/ML VIAL IM PRN ×2 (04:06→17:09)
[2020-03-27] MEDS: Cefepime HCl 2,000 MG in Water for inj. (sterile) 20 ML IVP SCH ×3 (04:06→20:33)
[2020-03-27] MEDS: Doxycycline 100 MG in 0.9 % Sodium Chloride Mini Bag 100 ML IVPB SCH ×2 (04:08→17:05)
[2020-03-27] MEDS: *HR* Heparin 5,000 UNIT/ML VIAL SQ SCH ×2 (04:08→17:06)
[2020-03-27] MEDS: MethylPREDNISolone 40 MG/ML VIAL IVP SCH ×2 (07:13→15:10)
[2020-03-27] MEDS: *HR* OxyCODONE Immed Rel 5 MG TABLET PO PRN ×4 (07:14→20:32)
[2020-03-27] MEDS: Folic Acid 1 MG TABLET PO SCH (07:15)
[2020-03-27] MEDS: Cholecalciferol (D-3) 1,000 UNIT (25MCG) TABLET PO SCH (07:15)
[2020-03-27] MEDS: Aspirin 81 MG TAB.CHEW PO SCH (07:15)
[2020-03-27 10:48] LABS: Appearance of Body Fluid Cloudy (Clear); Volume of Body Fluid 17 mL
[2020-03-27] MEDS: risperiDONE 1 MG TABLET PO SCH ×2 (20:32→20:59)
[2020-03-28] MEDS: *HR* HYDROcodone/Acet 5/325 mg TABLET PO PRN ×3 (00:25→16:51)
[2020-03-28] MEDS: MethylPREDNISolone 40 MG/ML VIAL IVP SCH ×3 (00:25→20:36)
[2020-03-28] MEDS: *HR* Promethazine 25 MG/ML VIAL IM PRN ×3 (00:37→18:17)
[2020-03-28] MEDS: *HR* OxyCODONE Immed Rel 5 MG TABLET PO PRN ×4 (02:11→20:40)
[2020-03-28 02:53] LABS: Basophils % 0.3 %; Eosinophils % 0.1 %; Hemoglobin 10.3 g/dL (11.5-15.4); Immature Granulocytes % 2.3 % (0-4); Lymphocytes # 0.8 K/mcL (0.6-4.6); Lymphocytes % 4.8 %; Mean Corpuscular HGB Conc 32.2 g/dL (31.6-35.5); Mean Corpuscular Hemoglobin 30.8 pg (28.0-33.3); Mean Corpuscular Volume 95.8 fL (83.0-100.0); Mean Platelet Volume 9.1 fL (9.4-12.4); Monocytes # 0.4 K/mcL (0.0-1.3); Monocytes % 2.3 %; Neutrophils # 14.4 K/mcL (1.6-8.9); Platelet Count 247 K/mcL (140-400); Red Blood Count 3.34 M/mcL (3.82-4.97); Red Cell Distribution Width 14.5 % (11.5-14.5); Segmented Neutrophils % 90.2 %; White Blood Count 15.9 K/mcL (4.3-11.1)
[2020-03-28 03:13] LABS: BUN/Creatinine Ratio 53 (6-26); Blood Urea Nitrogen 26 mg/dL (6-20); Calcium 9.2 mg/dL (8.6-10.3); Carbon Dioxide 31 mEq/L (23-29); Chloride 83 mEq/L (98-107); Glucose 108 mg/dL (70-105); Osmolality,Calculated 263 (280-300); Potassium 4.3 mEq/L (3.5-5.1); Sodium 124 mEq/L (136-145); eGFR For African Americans > 60 (> 60); eGFR For Non-African Americans > 60 (> 60)
[2020-03-28] MEDS ORDERED: *HR* HYDROmorphone (PF) 1 MG/ML SYRINGE IVP ONE (03:28)
[2020-03-28] MEDS: Ipratropium/Albuterol Neb 3 ML IH SCH ×5 (04:07→20:03)
[2020-03-28] MEDS: 0.9 % Sodium Chloride 1,000 ML IVC SCH ×2 (04:14→18:26)
[2020-03-28] MEDS: Doxycycline 100 MG in 0.9 % Sodium Chloride Mini Bag 100 ML IVPB SCH (04:14)
[2020-03-28] MEDS: *HR* Heparin 5,000 UNIT/ML VIAL SQ SCH ×2 (05:29→16:52)
[2020-03-28] MEDS: Ondansetron 4 MG/2 ML VIAL IVP PRN ×2 (05:34→13:51)
[2020-03-28] MEDS: Acetaminophen 325 MG TABLET PO PRN ×2 (05:54→13:51)
[2020-03-28 08:37] LABS: BUN/Creatinine Ratio 48 (6-26); Blood Urea Nitrogen 24 mg/dL (6-20); Calcium 9.5 mg/dL (8.6-10.3); Carbon Dioxide 35 mEq/L (23-29); Chloride 82 mEq/L (98-107); Glucose 108 mg/dL (70-105); Osmolality,Calculated 259 (280-300); Sodium 122 mEq/L (136-145); eGFR For African Americans > 60 (> 60); eGFR For Non-African Americans > 60 (> 60)
[2020-03-28] MEDS: cefTRIAXone 2,000 MG in 0.9 % Sodium Chloride Mini Bag 100 ML IVPB SCH (08:41)
[2020-03-28] MEDS: Folic Acid 1 MG TABLET PO SCH (08:47)
[2020-03-28] MEDS: ALPRAZolam 1 MG TABLET PO PRN ×2 (08:47→21:27)
[2020-03-28] MEDS: Aspirin 81 MG TAB.CHEW PO SCH (08:48)
[2020-03-28] MEDS: Cholecalciferol (D-3) 1,000 UNIT (25MCG) TABLET PO SCH (08:48)
[2020-03-28] MEDS ORDERED: Tolvaptan 15 MG TABLET PO ONE (14:22)
[2020-03-28 14:38] LABS: BUN/Creatinine Ratio 42 (6-26); Blood Urea Nitrogen 22 mg/dL (6-20); Calcium 9.6 mg/dL (8.6-10.3); Carbon Dioxide 34 mEq/L (23-29); Chloride 82 mEq/L (98-107); Glucose 156 mg/dL (70-105); Osmolality,Calculated 267 (280-300); Sodium 125 mEq/L (136-145); eGFR For African Americans > 60 (> 60); eGFR For Non-African Americans > 60 (> 60)
[2020-03-28] MEDS: Gabapentin 400 MG CAPSULE PO PRN (17:34)
[2020-03-28] MEDS: *HR* HYDROmorphone (PF) 1 MG/ML SYRINGE IVP PRN ×3 (18:20→21:30)
[2020-03-28] MEDS: risperiDONE 1 MG TABLET PO SCH (20:40)
[2020-03-29] MEDS: Ipratropium/Albuterol Neb 3 ML IH SCH ×7 (00:02→23:45)
[2020-03-29] MEDS: *HR* HYDROmorphone (PF) 1 MG/ML SYRINGE IVP PRN ×5 (00:50→20:29)
[2020-03-29] MEDS: Ondansetron 4 MG/2 ML VIAL IVP PRN ×4 (00:51→21:18)
[2020-03-29 04:02] LABS: Basophils % 0.1 %; Hematocrit 32.6 % (35.3-44.9); Hemoglobin 10.5 g/dL (11.5-15.4); Immature Granulocytes % 1.7 % (0-4); Lymphocytes # 0.6 K/mcL (0.6-4.6); Mean Corpuscular HGB Conc 32.2 g/dL (31.6-35.5); Mean Corpuscular Hemoglobin 30.3 pg (28.0-33.3); Mean Corpuscular Volume 94.2 fL (83.0-100.0); Mean Platelet Volume 8.9 fL (9.4-12.4); Monocytes # 0.2 K/mcL (0.0-1.3); Monocytes % 1.2 %; Platelet Count 238 K/mcL (140-400); Red Blood Count 3.46 M/mcL (3.82-4.97); Red Cell Distribution Width 14.5 % (11.5-14.5); White Blood Count 16.1 K/mcL (4.3-11.1)
[2020-03-29 04:13] LABS: BUN/Creatinine Ratio 46 (6-26); Blood Urea Nitrogen 24 mg/dL (6-20); Carbon Dioxide 33 mEq/L (23-29); Chloride 84 mEq/L (98-107); Glucose 126 mg/dL (70-105); Osmolality,Calculated 268 (280-300); Potassium 4.2 mEq/L (3.5-5.1); Sodium 126 mEq/L (136-145); eGFR For African Americans > 60 (> 60); eGFR For Non-African Americans > 60 (> 60)
[2020-03-29] MEDS: *HR* OxyCODONE Immed Rel 5 MG TABLET PO PRN ×3 (05:11→14:57)
[2020-03-29] MEDS: *HR* Heparin 5,000 UNIT/ML VIAL SQ SCH ×2 (05:14→17:48)
[2020-03-29] MEDS: MethylPREDNISolone 40 MG/ML VIAL IVP SCH ×2 (08:25→20:29)
[2020-03-29] MEDS: cefTRIAXone 2,000 MG in 0.9 % Sodium Chloride Mini Bag 100 ML IVPB SCH (08:29)
[2020-03-29] MEDS: Cholecalciferol (D-3) 1,000 UNIT (25MCG) TABLET PO SCH (08:30)
[2020-03-29] MEDS: Folic Acid 1 MG TABLET PO SCH (08:30)
[2020-03-29] MEDS: Aspirin 81 MG TAB.CHEW PO SCH (08:30)
[2020-03-29] MEDS: ALPRAZolam 1 MG TABLET PO PRN ×2 (10:02→21:18)
[2020-03-29] MEDS ORDERED: Tolvaptan 15 MG TABLET PO ONE (11:30)
[2020-03-29] MEDS ORDERED: *HR* FentaNYL PATCH 25 MCG PATCH TD SCH (16:15)
[2020-03-29] MEDS: risperiDONE 1 MG TABLET PO SCH (20:29)
[2020-03-29] MEDS: Gabapentin 400 MG CAPSULE PO SCH (20:29)
[2020-03-30] MEDS: Ipratropium/Albuterol Neb 3 ML IH SCH ×4 (04:20→16:07)
[2020-03-30 04:34] LABS: Basophils % 0.2 %; Hematocrit 33.1 % (35.3-44.9); Hemoglobin 10.4 g/dL (11.5-15.4); Immature Granulocytes % 2.3 % (0-4); Lymphocytes # 0.7 K/mcL (0.6-4.6); Lymphocytes % 5.9 %; Mean Corpuscular HGB Conc 31.4 g/dL (31.6-35.5); Mean Corpuscular Hemoglobin 29.9 pg (28.0-33.3); Mean Corpuscular Volume 95.1 fL (83.0-100.0); Mean Platelet Volume 8.9 fL (9.4-12.4); Monocytes # 0.1 K/mcL (0.0-1.3); Monocytes % 1.3 %; Platelet Count 248 K/mcL (140-400); Red Blood Count 3.48 M/mcL (3.82-4.97); Red Cell Distribution Width 14.4 % (11.5-14.5); Segmented Neutrophils % 90.3 %; White Blood Count 11.1 K/mcL (4.3-11.1)
[2020-03-30 04:54] LABS: BUN/Creatinine Ratio 57 (6-26); Blood Urea Nitrogen 36 mg/dL (6-20); Calcium 9.5 mg/dL (8.6-10.3); Carbon Dioxide 40 mEq/L (23-29); Chloride 89 mEq/L (98-107); Glucose 157 mg/dL (70-105); Osmolality,Calculated 292 (280-300); Potassium 4.1 mEq/L (3.5-5.1); Sodium 135 mEq/L (136-145); eGFR For African Americans > 60 (> 60); eGFR For Non-African Americans > 60 (> 60)
[2020-03-30] MEDS: *HR* Heparin 5,000 UNIT/ML VIAL SQ SCH (05:20)
[2020-03-30] MEDS: Gabapentin 400 MG CAPSULE PO SCH (07:45)
[2020-03-30] MEDS: ALPRAZolam 1 MG TABLET PO PRN ×2 (07:46→13:33)
[2020-03-30] MEDS: Folic Acid 1 MG TABLET PO SCH (07:46)
[2020-03-30] MEDS: Cholecalciferol (D-3) 1,000 UNIT (25MCG) TABLET PO SCH (07:46)
[2020-03-30] MEDS: Aspirin 81 MG TAB.CHEW PO SCH (07:46)
[2020-03-30] MEDS: *HR* OxyCODONE Immed Rel 5 MG TABLET PO PRN ×2 (07:46→13:33)
[2020-03-30] MEDS: Ondansetron 4 MG/2 ML VIAL IVP PRN ×2 (07:47→13:33)
[2020-03-30] MEDS: cefTRIAXone 2,000 MG in 0.9 % Sodium Chloride Mini Bag 100 ML IVPB SCH (07:47)
[2020-03-30] MEDS: MethylPREDNISolone 40 MG/ML VIAL IVP SCH (07:48)
[2020-03-30 11:29] VITALS: BP 154/82
[2020-03-30] MEDS ORDERED: Magic Mouthwash 10 ML UD Cup PO SCH (11:30)
[2020-03-30] MEDS ORDERED: Fluconazole 100 MG TABLET PO SCH (12:00)
== END 2020-03-30 16:44 | disposition home health service (06) | DRG 720 ==
LOC: 2ANU 17:50 → EMEROOARM 17:50 → SUATTDRO 22:30 → 2ANU 03-24 00:05
PROVIDERS: ADMIT Internal Medicine; ATTEND Internal Medicine
PROC: ENDOBRF (2020-03-26 09:00)